=== PATIENT | female | born 2005 | race Two or more races ===

== ENCOUNTER 2023-03-04 18:01 | Emergency (ER) | payer OTHER ==
[~2023-03-04] VITALS: Ht 162.6 cm; Wt 49.9 kg
== END 2023-03-04 21:22 | disposition home or self-care (01) ==
LOC: ER 18:02 → EMR PED 18:02
DX: S01.102A Unspecified open wound of left eyelid and periocular area, initial encounter (principal); W51.XXXA Accidental striking against or bumped into by another person, initial encounter; Y93.89 Activity, other specified; Y92.832 Beach as the place of occurrence of the external cause; Y99.9 Unspecified external cause status

== ENCOUNTER 2023-12-14 15:32 | Emergency (ER) | payer OTHER ==
[~2023-12-14] VITALS: Ht 157.5 cm; Wt 56.7 kg
[2023-12-14] MEDS ORDERED: CEFTRIAXONE SODIUM 1,000 MG VIAL IM STA (19:24)
[2023-12-14] MEDS ORDERED: KETOROLAC TROMETHAMINE 30 MG VIAL IM STA (19:24)
[2023-12-14] MEDS ORDERED: FAMOtidine 20 MG TABLET PO STA (19:25)
== END 2023-12-14 21:21 | disposition home or self-care (01) ==
LOC: ER 15:34
DX: J03.80 Acute tonsillitis due to other specified organisms (principal)